=== PATIENT | male | born 1975 | race African-American/Black ===

== ENCOUNTER 2018-10-09 15:56 | Inpatient (IN) ==
[2018-10-09] MEDS ORDERED: 0.9 % Sodium Chloride 1,000 ML IVC ONE (16:25)
[2018-10-09] MEDS ORDERED: *HR* Morphine Immed Rel 30 MG TABLET PO STA (16:25)
[2018-10-09] MEDS ORDERED: Isovue-370 500 ML BOTTLE IVP ONE (16:25)
--- NOTE | 2018-10-09 16:42 | Emergency Department Note ---
Disposition Clinical Impression: Cellulitis, gluteal Disposition: Admitted As Inpatient Condition: Good Referrals: Nanci Martinez CNP [Primary Care Provider] - Forms: ED Satisfaction Letter Time of Disposition: 19:37 Skin/Abscess/FB HPI Chief complaint: ED Skin/Abscess/Foreign Body Stated complaint: Abcess on back Time Seen by Provider: 10/09/18 16:13 Source: patient Mode of arrival: ambulatory Limitations: no limitations Nursing Notes Reviewed: Yes Vital Signs Reviewed: Yes HPI Narrative: 43-year-old male with no previous medical history and previous history of ab scess arrives to the emergency department with abscess in his left buttock is radiating anteriorly noted to his perineum. The patient states this started roughly 4 days ago. The patient was evaluated urgent care was started on antibiotics but does not know which one. Patient states that since then he has been express worsening pain. The patient arrives to the emergency department complaining of large amount of pain in his perineal and buttock region. Denies any other complaints at this time going fevers, chills.. No ulcerative colitis history or history of Crohn's disease. Denies any other previous abdominal surgeries or complaints. Patient is uncomfortable on evaluation in the room but denies any other complaints at this time. Home Medications Medication Instructions Recorded Confirmed Lisinopril [Zestril] 20 mg PO DAILY 10/03/17 10/09/18 Omeprazole [PriLOSEC] 20 mg PO DAILY 10/03/17 10/09/18 Cyclobenzaprine [Flexeril] 10 mg PO HS PRN 04/03/18 10/09/18 Atorvastatin [Lipitor] 20 mg PO HS 10/09/18 10/09/18 Celecoxib [Celebrex] 200 mg PO BID 10/09/18 10/09/18 Lactobacillus Acidophilus 1 each PO DAILY 10/09/18 10/09/18 [Acidophilus] Sulfamethoxazole/Trimeth DS 1 tab PO BID 10/09/18 10/09/18 [Bactrim Ds] Tobramycin Opth SOLN 1 drop .ROUTE BID 10/09/18 10/09/18 cephALEXin [Keflex] 500 mg PO TID 10/09/18 10/09/18 Allergies Allergy/AdvReac Type Severity Reaction Status Date / Time No Known Allergies Allergy Verified 04/03/18 08:46 All systems ED: reviewed and negative except as stated. Constitutional: Denies: fever, chills, weakness ENT ED: Denies: dysphagia Cardiovascular: Denies: chest pain Respiratory: Denies: dyspnea Gastrointestinal: Denies: abdominal pain Genitourinary: Denies: urgency, dysuria Musculoskeletal: Denies: back pain, neck pain Integumentary: Reports: lesions Neurological: Denies: headache Past Medical History - Past Medical History Attestation: Yes The following information was validated with the patient. Source: patient, old records reviewed Medical history: Reports: hyperlipidemia, hypertension, other Surgical history: Reports: herniorrhaphy Psychiatric history: Reports: anxiety - Social History Smoking Status: Never smoker Smokeless Tobacco Status: No Alcohol use: Reports: none Drug use: Reports: none Physical Exam - General Limitations: no limitations General appearance: alert, in no apparent distress - Head Head exam: atraumatic, normocephalic, normal inspection - Eye Eye exam: Present: normal appearance, PERRL, EOMI - ENT ENT exam: normal exam, normal oropharynx, mucous membranes moist - Neck Neck exam: Present: normal inspection, full ROM, trachea midline - Chest Chest inspection: Present: normal inspection, symmetric chest wall rise - Respiratory Respiratory exam: Absent: respiratory distress - Cardiovascular Cardiovascular exam: Present: tachycardia - Abdominal Exam Abdominal exam: Present: soft, Non-Tender. Absent: tenderness, distention, guarding, rebound, rigidity - Rectal Exam [employer] Agent present during exam: Yes Rectal exam: Present: other (Patient with a 6 cm area of induration on left gluteal cleft with induration radiating anteriorly into perineal region. ) Course Vital Signs Temperature 98.1 F 10/09/18 15:58 Pulse Rate 119 10/09/18 15:58 Respiratory Rate 20 10/09/18 15:58 Blood Pressure 133/86 10/09/18 15:58 O2 Sat by Pulse Oximetry 98 10/09/18 15:58 Temperature 98.1 F 10/09/18 15:58 Pulse Rate 98 10/09/18 18:18 Respiratory Rate 20 10/09/18 15:58 Blood Pressure 134/76 10/09/18 18:18 O2 Sat by Pulse Oximetry 98 10/09/18 18:18 Oxygen Delivery Oxygen Delivery Room Air Skin/Abscess/Foreign Body - MDM Narrative Medical decision making narrative: Patient CT scan demonstrates continued cellulitis but there is no drainable abscess. Given the patient's large amount of pain and the fact that the patient has been taking antibiotics and his symptoms worsen, we will admit the patient to the hospital for failed outpatient therapy. Patient aware and agrees to plan . No further questions or concerns noted. Accepted by Dr. Cullen. - Lab Data Lab results reviewed: Yes I reviewed the patient's lab results. Result diagrams: 10/09/18 18:20 10/09/18 16:45 Lab Results 10/09/18 10/09/18 10/09/18 Range/Units 16:45 18:20 18:20 WBC 18.6 H (4.3-11.1) K/mcL RBC 5.02 (4.19-5.50) M/mcL Hgb 14.5 (12.9-16.9) g/dL Hct 40.4 (37.5-50.1) % MCV 80.5 L (83.0-100.0) fL MCH 28.9 (28.0-33.3) pg MCHC 35.9 H (31.6-35.5) g/dL RDW 12.4 (11.5-14.5) % Plt Count 216 (140-400) K/mcL MPV 11.7 (9.4-12.4) fL Immature Gran % 0.5 (0-4) % Seg Neutrophils % 75.4 % Lymphocytes % 15.4 % Monocytes % 7.7 % Eosinophils % 0.5 % Basophils % 0.5 % Neutrophils # 14.0 H (1.6-8.9) K/mcL Lymphocytes # 2.9 (0.6-4.6) K/mcL Monocytes # 1.4 H (0.0-1.3) K/mcL Eosinophils # 0.1 (0.0-0.6) K/mcL Basophils # 0.1 (0.0-0.2) K/mcL Sodium 137 (136-145) mEq/L Potassium 4.1 (3.5-5.1) mEq/L Chloride 98 (98-107) mEq/L Carbon Dioxide 24 (23-29) mEq/L BUN 17 (6-20) mg/dL Creatinine 1.27 (0.70-1.30) mg/dL Est GFR ( Amer) > 60 (> 60) Est GFR (Non-Af Amer) > 60 (> 60) BUN/Creatinine Ratio 13 (6-26) Glucose 121 H (70-105) mg/dL Calculated Osmolality 287 (280-300) Lactic Acid 0.6 (0.5-2.2) mmol/L Calcium 9.1 (8.6-10.3) mg/dL - Radiology Data Radiology results reviewed: Yes I reviewed the patient's radiology results. Abdomen/Pelvis CT 10/09/18 16:25 IMPRESSION: Probable cellulitis or phlegmon in the left buttocks without evidence for drainable abscess D/ / Tank Morales MD / Tank Morales MD Interpreting Provider: Tank Morales MD
[2018-10-09 17:21] LABS: BUN/Creatinine Ratio 13 (6-26); Blood Urea Nitrogen 17 mg/dL (6-20); Calcium 9.1 mg/dL (8.6-10.3); Carbon Dioxide 24 mEq/L (23-29); Chloride 98 mEq/L (98-107); Glucose 121 mg/dL (70-105); Osmolality,Calculated 287 (280-300); Potassium 4.1 mEq/L (3.5-5.1); Sodium 137 mEq/L (136-145); eGFR For Non-African Americans > 60 (> 60)
[2018-10-09] MEDS ORDERED: Piperacillin/Tazobactam 3.375 GM in 0.9 % Sodium Chloride Mini Bag 100 ML IVPB ONE (18:11)
[2018-10-09] MEDS ORDERED: *HR* FentaNYL (PF) 100 MCG/2 ML VIAL IVP ONE (18:20)
--- NOTE | 2018-10-09 18:22 | Emergency Department Note ---
Disposition Clinical Impression: Cellulitis, gluteal Disposition: Admitted As Inpatient Condition: Good Referrals: Nanci Martinez CNP [Primary Care Provider] - Forms: ED Satisfaction Letter Time of Disposition: 18:22 General Adult HPI - General Chief complaint: ED Skin/Abscess/Foreign Body Stated complaint: Abcess on back Time Seen by Provider: 10/09/18 16:13 Source: patient Mode of arrival: ambulatory Limitations: no limitations - History of Present Illness Pain Scale: 10 - Related Data Home Medications Medication Instructions Recorded Confirmed Amlodipine Besylate 2.5 mg PO DAILY 10/03/17 04/03/18 Lisinopril [Zestril] 20 mg PO DAILY 10/03/17 04/03/18 Omeprazole [PriLOSEC] 20 mg PO DAILY 10/03/17 04/03/18 Cyclobenzaprine [Flexeril] 10 mg PO HS PRN 04/03/18 04/03/18 Previous Rx's Medication Instructions Recorded Crutch 1 each MC DAILY #1 each 04/03/18 Ketorolac [Toradol] 10 mg PO Q6HR PRN #20 tablet 04/03/18 cephALEXin [Keflex] 500 mg PO QID 10 Days #40 capsule 04/08/18 Allergies Allergy/AdvReac Type Severity Reaction Status Date / Time No Known Allergies Allergy Verified 04/03/18 08:46 Constitutional: Denies: fever, chills, weakness ENT ED: Denies: dysphagia Cardiovascular: Denies: chest pain Respiratory: Denies: dyspnea Gastrointestinal: Denies: abdominal pain Genitourinary: Denies: urgency, dysuria Musculoskeletal: Denies: back pain, neck pain Integumentary: Reports: lesions Neurological: Denies: headache Past Medical History - Past Medical History Medical history: Reports: hyperlipidemia, hypertension, other Surgical history: Reports: herniorrhaphy Psychiatric history: Reports: anxiety - Social History Smoking Status: Never smoker Smokeless Tobacco Status: No Alcohol use: Reports: none Drug use: Reports: none Physical Exam - General Limitations: no limitations General appearance: alert, in no apparent distress Course Vital Signs Temperature 98.1 F 10/09/18 15:58 Pulse Rate 119 10/09/18 15:58 Respiratory Rate 20 10/09/18 15:58 Blood Pressure 133/86 10/09/18 15:58 O2 Sat by Pulse Oximetry 98 10/09/18 15:58 Temperature 98.1 F 10/09/18 15:58 Pulse Rate 98 10/09/18 18:18 Respiratory Rate 20 10/09/18 15:58 Blood Pressure 134/76 10/09/18 18:18 O2 Sat by Pulse Oximetry 98 10/09/18 18:18 Oxygen Delivery Oxygen Delivery Room Air Medical Decision Making - Lab Data Result diagrams: 10/09/18 16:45 Lab Results 10/09/18 Range/Units 16:45 Sodium 137 (136-145) mEq/L Potassium 4.1 (3.5-5.1) mEq/L Chloride 98 (98-107) mEq/L Carbon Dioxide 24 (23-29) mEq/L BUN 17 (6-20) mg/dL Creatinine 1.27 (0.70-1.30) mg/dL Est GFR ( Amer) > 60 (> 60) Est GFR (Non-Af Amer) > 60 (> 60) BUN/Creatinine Ratio 13 (6-26) Glucose 121 H (70-105) mg/dL Calculated Osmolality 287 (280-300) Calcium 9.1 (8.6-10.3) mg/dL Attestation Statement - Attestation Attestation: I examined this patient and my medical decision-making was reviewed with the Resident Physician. I agree with the documented findings, disposition and treatment plan as described except to the extent set forth below. 43 year old male presents to the ED with complaits of gluteal cleft infection, no history of MRSA, no history of diabetes and states that he has been on outpatinet therapy for this cellultiis and it isnt improving. ABCT show no drainable absess, but rather a phlegmon that is present. we will plce him on vanc/zosyn and admit to medicine.
[2018-10-09 19:01] LABS: Basophils # 0.1 K/mcL (0.0-0.2); Basophils % 0.5 %; Eosinophils # 0.1 K/mcL (0.0-0.6); Eosinophils % 0.5 %; Hematocrit 40.4 % (37.5-50.1); Hemoglobin 14.5 g/dL (12.9-16.9); Immature Granulocytes % 0.5 % (0-4); Lymphocytes # 2.9 K/mcL (0.6-4.6); Lymphocytes % 15.4 %; Mean Corpuscular HGB Conc 35.9 g/dL (31.6-35.5); Mean Corpuscular Hemoglobin 28.9 pg (28.0-33.3); Mean Corpuscular Volume 80.5 fL (83.0-100.0); Mean Platelet Volume 11.7 fL (9.4-12.4); Monocytes # 1.4 K/mcL (0.0-1.3); Monocytes % 7.7 %; Platelet Count 216 K/mcL (140-400); Red Blood Count 5.02 M/mcL (4.19-5.50); Red Cell Distribution Width 12.4 % (11.5-14.5); Segmented Neutrophils % 75.4 %
[2018-10-09] MEDS ORDERED: Naloxone 0.4 MG/ML INJ IVP PRN (19:51)
[2018-10-09] MEDS ORDERED: Acetaminophen 325 MG TABLET PO PRN (19:51)
[2018-10-09] MEDS ORDERED: Ketorolac 30 MG/ML VIAL IVP ONE (21:00)
--- NOTE | 2018-10-09 21:13 | Internal Med History&Physical ---
Date of Encounter: 10/09/18 Time of Encounter: 21:07 Internal Medicine - H&P: HPI Chief complaint: Butt pain Admitted From: Emergency Dept Plans for Post Hospital Care: Home History of present illness: Berhane Ballesteros is a 43 year old man with hypertension who presents to the emergency room complaining of pain and swelling in his buttocks. It started 4 days ago and he started taking cephalexin 2 days ago with no improvement. He says it continued to progress and on arrival was noted tachycardic. Lab work revealed a leukocyte count of 18.6. Physical exam confirmed significant inflammatory signs on the left gluteal cleft and extending. CT scan showed cellulitis and phlegmon formation in the left buttock without evidence of drainable abscess. He was given vancomycin and PipTazo and is now admitted for further care. Past Med Surg Social Fam HX - Past Medical History Medical history: hyperlipidemia, hypertension, other Additional medical history: Sleep apnea. chronic back pain Psychiatric history: anxiety - Past Surgical History Surgical History: herniorrhaphy Additional surgical history: right inguinal hernia repair - Social History Smoking Status: Never smoker Smokeless Tobacco Status: No Alcohol use: none Drug use: none Internal Medicine - H&P: Meds Lisinopril [Zestril] 20 mg PO DAILY 10/03/17 [History] Omeprazole [PriLOSEC] 20 mg PO DAILY 10/03/17 [History] Cyclobenzaprine [Flexeril] 10 mg PO HS PRN 04/03/18 [History] Atorvastatin [Lipitor] 20 mg PO HS 10/09/18 [History] Celecoxib [Celebrex] 200 mg PO BID 10/09/18 [History] Lactobacillus Acidophilus [Acidophilus] 1 each PO DAILY 10/09/18 [History] Sulfamethoxazole/Trimeth DS [Bactrim Ds] 1 tab PO BID 10/09/18 [History] Tobramycin Opth SOLN 1 drop .ROUTE BID 10/09/18 [History] cephALEXin [Keflex] 500 mg PO TID 10/09/18 [History] Allergy/AdvReac Type Severity Reaction Status Date / Time No Known Allergies Allergy Verified 04/03/18 08:46 All Systems PM: A 10-system review of systems was performed and is negative for pertinent findings except as documented above in the HPI. Family history reviewed and found non-contributory. - Constitutional Vitals: Temp Pulse Resp BP Pulse Ox 98.1 F 98 20 134/76 98 10/09/18 15:58 10/09/18 18:18 10/09/18 15:58 10/09/18 18:18 10/09/18 18:18 Exam: Vitals: Reviewed General: Well-developed -[place]ian male lying in bed with notable discomfort and antalgic posturing Skin: Left gluteal cleft with firm induration of about 5cm area, hot to touch and exquisitely tender. HEENT: Moist mucous membranes. No conjunctivae pallor. Neck: No lymphadenopathy. No JVD. No carotid bruits. No palpable thyroid. Chest: Normal thoracic expansion. Normal breath sounds. Clear to auscultation. Heart: Normal S1 & S2; rhythmic. No rubs or murmurs. Abdomen: Non-distended, soft and non-tender to palpation. No peritoneal reaction. Extremities: No clubbing, cyanosis or edema. No calf tenderness. Normal distal pulses. Neurological: Awake, alert and oriented to person, place and time. No focal deficits. Psych: Affect appropriate. Internal Med - H&P Results - Labs CBC & Chem 7: 10/09/18 18:20 10/09/18 16:45 Labs: Short CBC 10/09/18 Range/Units 18:20 WBC 18.6 H (4.3-11.1) K/mcL Hgb 14.5 (12.9-16.9) g/dL Hct 40.4 (37.5-50.1) % Plt Count 216 (140-400) K/mcL Neutrophils # 14.0 H (1.6-8.9) K/mcL BMP 10/09/18 16:45 Sodium 137 Potassium 4.1 Chloride 98 Carbon Dioxide 24 BUN 17 Creatinine 1.27 Glucose 121 H Calcium 9.1 - Impressions ITS Impressions Abdomen/Pelvis CT 10/09/18 16:25 IMPRESSION: Probable cellulitis or phlegmon in the left buttocks without evidence for drainable abscess D/ / Tank Morales MD / Tank Morales MD Interpreting Provider: Tank Morales MD - Assessment and plan (1) Cellulitis, gluteal Current Visit: Yes Status: Acute Assessment and plan: Poor response to outpatient therapy and now has signs of sepsis as evidenced by tachycardia and leukocytosis. Will continue fluid resuscitation and place on vancomycin. He will need close clinical monitoring to assess for coalescence of the underlying collection which may then be amenable to incision/drainage. Pain control as needed. (2) HTN (hypertension) Current Visit: Yes Status: Acute Assessment and plan: Will continue daily lisinopril Qualifiers: Hypertension type: essential hypertension Qualified Code(s): I10 - Essential (primary) hypertension (3) Obesity Current Visit: Yes Status: Acute Assessment and plan: Educated in counseling given on therapeutic lifestyle changes for weight loss. Qualifiers: Obesity type: due to excess calories Obesity classification: adult class 2 (BMI 35 - 39.9) Serious obesity comorbidity presence: with serious comorbidity Body mass index: BMI 37.0-37.9 Qualified Code(s): E66.01 - Morbid (severe) obesity due to excess calories; Z68.37 - Body mass index (BMI) 37.0-37.9, adult (4) DVT prophylaxis Current Visit: Yes Status: Acute Assessment and plan: SubQ heparin - Time Spent With Patient Total time spent is greater than 50% in coordination of care (as documented) at patient's floor/unit and/or counseling patient: Greater than 35 minutes
[2018-10-09] MEDS: *HR* OxyCODONE Immed Rel 5 MG TABLET PO PRN (22:35)
[2018-10-09] MEDS: Ringers Solution, Lactated 1,000 ML IVC SCH (22:35)
[2018-10-09] MEDS: Celecoxib 200 MG CAPSULE PO SCH (23:56)
[2018-10-10] MEDS: *HR* Heparin 5,000 UNIT/ML VIAL SQ SCH ×2 (05:34→16:37)
[2018-10-10] MEDS: Lisinopril 20 MG TABLET PO SCH (08:00)
[2018-10-10] MEDS: Celecoxib 200 MG CAPSULE PO SCH ×2 (08:00→20:45)
[2018-10-10] MEDS: *HR* OxyCODONE Immed Rel 5 MG TABLET PO PRN ×3 (08:01→22:26)
[2018-10-10] MEDS: Ringers Solution, Lactated 1,000 ML IVC SCH (08:01)
[2018-10-10] MEDS ORDERED: Lactobacillus 1 EACH CAP.SPRINK PO SCH (09:00)
[2018-10-10 10:08] LABS: Basophils # 0.1 K/mcL (0.0-0.2); Basophils % 0.6 %; Eosinophils # 0.4 K/mcL (0.0-0.6); Eosinophils % 3.5 %; Hematocrit 40.6 % (37.5-50.1); Hemoglobin 14.6 g/dL (12.9-16.9); Immature Granulocytes % 0.3 % (0-4); Lymphocytes # 2.3 K/mcL (0.6-4.6); Lymphocytes % 20.5 %; Mean Corpuscular Hemoglobin 29.1 pg (28.0-33.3); Mean Platelet Volume 11.2 fL (9.4-12.4); Monocytes % 8.6 %; Neutrophils # 7.6 K/mcL (1.6-8.9); Platelet Count 196 K/mcL (140-400); Red Blood Count 5.01 M/mcL (4.19-5.50); Red Cell Distribution Width 12.4 % (11.5-14.5); Segmented Neutrophils % 66.5 %
[2018-10-10 10:13] LABS: INR 1.2; Prothrombin Time 13.9 Seconds (9.4-12.1)
[2018-10-10 10:15] LABS: Activated Partial Thrombo Time 32.5 Seconds (26.0-36.0)
[2018-10-10 10:28] LABS: BUN/Creatinine Ratio 13 (6-26); Blood Urea Nitrogen 13 mg/dL (6-20); Calcium 9.2 mg/dL (8.6-10.3); Carbon Dioxide 28 mEq/L (23-29); Chloride 104 mEq/L (98-107); Glucose 114 mg/dL (70-105); Osmolality,Calculated 285 (280-300); Sodium 137 mEq/L (136-145); eGFR For Non-African Americans > 60 (> 60)
[2018-10-10] MEDS: traMADol 50 MG TABLET PO PRN ×2 (13:07→20:48)
--- NOTE | 2018-10-10 15:03 | Internal Med Progress Note ---
Hospitalist Progress Note - Encounter Date of Encounter: 10/10/18 Time of Encounter: 09:00 - Subjective Interval History: Patient has no fever, no nausea vomiting. Still complains of left sided buttock pain. Vitals are stable. - Exam Vitals: Temp Pulse Resp BP Pulse Ox 98.3 F 73 17 134/80 97 10/10/18 14:21 10/10/18 14:21 10/10/18 14:21 10/10/18 14:21 10/10/18 14:21 Exam: Vitals: Reviewed General: Well-developed -[place] male lying in bed with notable discomfort and anti-algic posturing Skin: Left gluteal cleft with firm induration of about 5cm area, hot to touch and exquisitely tender. HEENT: Moist mucous membranes. No conjunctivae pallor. Neck: No lymphadenopathy. No JVD. No carotid bruits. No palpable thyroid. Chest: Normal thoracic expansion. Normal breath sounds. Clear to auscultation. Heart: Normal S1 & S2; rhythmic. No rubs or murmurs. Abdomen: Non-distended, soft and non-tender to palpation. No peritoneal reaction. Extremities: No clubbing, cyanosis or edema. No calf tenderness. Normal distal pulses. Neurological: Awake, alert and oriented to person, place and time. No focal deficits. Psych: Affect appropriate. - Assessment and Plan (1) Cellulitis, gluteal Current Visit: Yes Status: Acute Assessment and Plan: Poor response to outpatient therapy and now has signs of sepsis as evidenced by tachycardia and leukocytosis. - Continue antibiotic vancomycin - CT shows no drainable fluid collection. - White count trended down. Tachycardia improved treatment (2) HTN (hypertension) Current Visit: Yes Status: Acute Assessment and Plan: Will continue daily lisinopril (3) Obesity Current Visit: Yes Status: Acute Assessment and Plan: Educated in counseling given on therapeutic lifestyle changes for weight loss. (4) DVT prophylaxis Current Visit: Yes Status: Acute Assessment and Plan: SubQ heparin - Time Spent with Patient Total time spent is greater than 50% in coordination of care (as documented) at patient's floor/unit and/or counseling patient: 40 minutes Greater than 35 minutes Plan of Care Discussed with: patient Internal Medicine: Result - Labs CBC & Chem 7: 10/10/18 04:00 10/10/18 04:00 Labs: Short CBC 10/09/18 10/10/18 Range/Units 18:20 04:00 WBC 18.6 H 11.4 H (4.3-11.1) K/mcL Hgb 14.5 14.6 (12.9-16.9) g/dL Hct 40.4 40.6 (37.5-50.1) % Plt Count 216 196 (140-400) K/mcL Neutrophils # 14.0 H 7.6 (1.6-8.9) K/mcL BMP 10/09/18 10/10/18 16:45 04:00 Sodium 137 137 Potassium 4.1 4.0 Chloride 98 104 Carbon Dioxide 24 28 BUN 17 13 Creatinine 1.27 1.01 Glucose 121 H 114 H Calcium 9.1 9.2 - ABG Interpretation ABG results: PT/INR, D-dimer PT 13.9 Seconds (9.4-12.1) H 10/10/18 04:00 - Impressions Impressions Abdomen/Pelvis CT 10/09/18 16:25 IMPRESSION: Probable cellulitis or phlegmon in the left buttocks without evidence for drainable abscess D/ / Tank Morales MD / Tank Morales MD Interpreting Provider: Tank Morales MD Consult Discharge Plan - Plan Referrals: Nanci Martinez, P[employer]ER [Primary Care Provider] - (2) HTN (hypertension) Qualifiers: Hypertension type: essential hypertension Qualified Code(s): I10 - Essential (primary) hypertension (3) Obesity Qualifiers: Obesity type: due to excess calories Obesity classification: adult class 2 (BMI 35 - 39.9) Serious obesity comorbidity presence: with serious comorbidity Body mass index: BMI 37.0-37.9 Qualified Code(s): E66.01 - Morbid (severe) obesity due to excess calories; Z68.37 - Body mass index (BMI) 37.0-37.9, adult
[2018-10-10] MEDS: traMADol 50 MG TABLET PO SCH ×2 (23:27→23:36)
[2018-10-11 04:06] LABS: Basophils # 0.1 K/mcL (0.0-0.2); Basophils % 0.6 %; Eosinophils # 0.6 K/mcL (0.0-0.6); Eosinophils % 6.2 %; Hematocrit 36.9 % (37.5-50.1); Hemoglobin 13.1 g/dL (12.9-16.9); Immature Granulocytes % 0.3 % (0-4); Lymphocytes # 2.3 K/mcL (0.6-4.6); Lymphocytes % 25.1 %; Mean Corpuscular HGB Conc 35.5 g/dL (31.6-35.5); Mean Corpuscular Hemoglobin 29.3 pg (28.0-33.3); Mean Corpuscular Volume 82.6 fL (83.0-100.0); Monocytes # 0.9 K/mcL (0.0-1.3); Monocytes % 9.5 %; Neutrophils # 5.3 K/mcL (1.6-8.9); Platelet Count 161 K/mcL (140-400); Red Blood Count 4.47 M/mcL (4.19-5.50); Red Cell Distribution Width 12.4 % (11.5-14.5); Segmented Neutrophils % 58.3 %
[2018-10-11 04:22] LABS: BUN/Creatinine Ratio 12 (6-26); Blood Urea Nitrogen 14 mg/dL (6-20); Calcium 8.8 mg/dL (8.6-10.3); Carbon Dioxide 25 mEq/L (23-29); Chloride 106 mEq/L (98-107); Glucose 111 mg/dL (70-105); Osmolality,Calculated 283 (280-300); Potassium 4.4 mEq/L (3.5-5.1); Sodium 136 mEq/L (136-145); eGFR For Non-African Americans > 60 (> 60)
[2018-10-11] MEDS: traMADol 50 MG TABLET PO SCH ×4 (04:33→19:56)
[2018-10-11] MEDS: *HR* OxyCODONE Immed Rel 5 MG TABLET PO PRN ×2 (06:06→19:54)
[2018-10-11] MEDS: *HR* Heparin 5,000 UNIT/ML VIAL SQ SCH ×2 (06:07→18:13)
[2018-10-11] MEDS: Lisinopril 20 MG TABLET PO SCH (08:08)
[2018-10-11] MEDS: Celecoxib 200 MG CAPSULE PO SCH ×2 (08:08→19:54)
--- NOTE | 2018-10-11 12:45 | Internal Med Progress Note ---
Hospitalist Progress Note - Encounter Date of Encounter: 10/11/18 Time of Encounter: 12:42 - Subjective Interval History: Pt's pain not improving. States it has started draining and that there was pus running down his leg and in his underwear. Very tender to the touch. Denies fever, N/V, diarrhea, CP, or SOB. - Exam Vitals: Temp Pulse Resp BP Pulse Ox 97.7 F 66 16 129/76 97 10/11/18 10:52 10/11/18 10:52 10/11/18 10:52 10/11/18 10:52 10/11/18 10:52 Exam: General: NAD, uncomfortable from pain Skin: Left gluteal cleft with firm induration of about 5cm area, warm, tender, with purulent drainage Chest: Normal breath sounds. Clear to auscultation. Heart: Normal S1 & S2; RRR Abdomen: soft and non-tender Extremities: No edema. Normal distal pulses. Neurological: No focal deficits. Psych: Awake, fully oriented, normal affect - Summary of Assessment and Plan Summary of Assessment and Plan: Berhane Ballesteros is a 43 M w hx obesity, HTN, HLD, GERARD, who p/w painful rash L gluteal crease and leukocytosis concerning for abscess and cellulitis. Cellulitis and abscess: CT suggesting against drainable collection but on exam today there is purulent expression. Leukocytosis resolved. - continue empiric Vanc - GenSurg consultation - wound culture - pain control w oxycodone Sepsis (poa): resolved, vitals and leukocytosis improved, lactate wnl and BCx ngtd HTN: home lisinopril HLD: home lipitor GERARD: CPAP qhs Obesity: BMI 37 Chronic back pain: home celebrex PPx: lovenox FEN: regular, no MIVF Lines: PIV Consults: Code: Full Dispo: patient requires inpatient eval and management at this time. Anticipate 2-3 days. Will be homegoing - Time Spent with Patient Total time spent is greater than 50% in coordination of care (as documented) at patient's floor/unit and/or counseling patient: Internal Medicine: Result - Labs CBC & Chem 7: 10/11/18 03:17 10/11/18 03:17 Labs: Short CBC 10/11/18 Range/Units 03:17 WBC 9.1 (4.3-11.1) K/mcL Hgb 13.1 D (12.9-16.9) g/dL Hct 36.9 L (37.5-50.1) % Plt Count 161 (140-400) K/mcL Neutrophils # 5.3 (1.6-8.9) K/mcL BMP 10/11/18 03:17 Sodium 136 Potassium 4.4 Chloride 106 Carbon Dioxide 25 BUN 14 Creatinine 1.20 Glucose 111 H Calcium 8.8 - ABG Interpretation ABG results: PT/INR, D-dimer PT 13.9 Seconds (9.4-12.1) H 10/10/18 04:00 Consult Discharge Plan - Plan Referrals: Nanci Martinez, [employer] DEM[employer]ATOR [Primary Care Provider] -
--- NOTE | 2018-10-11 16:01 | General Surgery Consult Note ---
Date of Encounter: 10/11/18 Time of Encounter: 16:00 History of Present Illness Consult date: 10/11/18 Reason for consult: other (left buttock abscess) Requesting physician: José Burleson History of present illness: 43-year-old referred for further surgical evaluation and possible treatment of progressive pain and swelling left buttocks. Symptoms started approximately 4 days before presenting to [facility] for further evaluation and treatment on 10/09/18. CT of the area demonstrated cellulitis and phlegmon without evidence of a "drainable" abscess. That has progressed to a 4 cm well-defined, tender abscess medial left buttocks. Unfortunately, this is not amenable to local anesthetic with incision and drainage at bedside. I have recommended incision, drainage, and debridement and on anesthesia. Past medical history: Hyperlipidemia, hypertension, obstructive sleep apnea, chronic back pain, and generalized anxiety Surgical history: Right inguinal hernia repair the remote past; no no other abdominal procedures. Allergies: No known drug allergies Medications: Lisinopril 20 mg by mouth daily Omeprazole 20 mg by mouth daily Cyclobenzaprine 10 mg by mouth daily at bedtime as needed (it is unclear whether the patient is still using this medication) Atorvastatin 20 mg by mouth daily at bedtime Celecoxib 200 mg by mouth twice a day Lactobacillus acidophilus 1 by mouth daily TMP/sulfa DS 1 by mouth twice a day, initiated 10/09/18 Cephalexin 500 mg by mouth 3 times a day, initiated 10/09/18 Vancomycin was initiated on admission to [facility] Social history: Patient denies alcohol, tobacco, or illicit drug use. He has never smoked Family history: Noncontributory Physical examination: Well-developed well-nourished, age-appropriate male in no acute distress. The patient is 1.88 m tall, 131.5 kg, BMI 37.2. The patient has remained afebrile, currently 98.0; pulse 66-68 and regular, respiratory rate 16, blood pressure 122/73. SPO2 on room air 97% Skin: Warm, without obvious jaundice. Multiple cutaneous tattoos are evident Lungs: Clear to auscultation, no abdominal pain on deep inspiration Cardiac: Regular rate, no appreciable murmurs Abdomen: Soft, nontender. No detected intra-abdominal masses. No rebound. Active bowel sounds. Buttocks: 4 cm, tender, round cutaneous abscess medial left buttocks. No obvious drainage. Surrounding skin changes, erythema or edema. Extremities: No obvious clubbing, cyanosis, or edema. Labs: WBC on presentation 18.6, currently 9.1. Neutrophils on presentation 14.0, currently 5.3. Hemoglobin 13.1, hematocrit 36.9, platelet count 161,000 Electrolytes, BUN, creatinine essentially stable and within normal limits for the last 2 days Impression: Cutaneous abscess, furuncle, medial left buttocks. Etiology not identified but the lesion requires incision, drainage, and debridement. To facilitate patient comfort and maximize debridement, the the abscess will be treated using anesthesia. The procedure was discussed with the patient. Risks include hemorrhage, infecti on, scarring with deformity, recurrent abscess. The patient is anxious to proceed as this will facilitate resolution of the acute inflammatory process and shorten his hospital stay. Surgical consent has been obtained. Past Med Surg Social Fam HX - Past Medical History Medical history: hyperlipidemia, hypertension, other Additional medical history: Sleep apnea. chronic back pain Psychiatric history: anxiety - Past Surgical History Surgical History: herniorrhaphy Additional surgical history: right inguinal hernia repair - Social History Smoking Status: Never smoker Smokeless Tobacco Status: No Alcohol use: none Drug use: none Medications and Allergies Lisinopril [Zestril] 20 mg PO DAILY 10/03/17 [History] Omeprazole [PriLOSEC] 20 mg PO DAILY 10/03/17 [History] Cyclobenzaprine [Flexeril] 10 mg PO HS PRN 04/03/18 [History] Atorvastatin [Lipitor] 20 mg PO HS 10/09/18 [History] Celecoxib [Celebrex] 200 mg PO BID 10/09/18 [History] Lactobacillus Acidophilus [Acidophilus] 1 each PO DAILY 10/09/18 [History] Sulfamethoxazole/Trimeth DS [Bactrim Ds] 1 tab PO BID 10/09/18 [History] Tobramycin Opth SOLN 1 drop .ROUTE BID 10/09/18 [History] cephALEXin [Keflex] 500 mg PO TID 10/09/18 [History] Allergy/AdvReac Type Severity Reaction Status Date / Time No Known Allergies Allergy Verified 04/03/18 08:46 Review of Systems All systems PM: The remainder of the systems were reviewed and are negative General Surgery Exam Initial Vital Signs Temp Pulse Resp BP Pulse Ox 98.1 F 119 20 133/86 98 10/09/18 15:58 10/09/18 15:58 10/09/18 15:58 10/09/18 15:58 10/09/18 15:58 Exam Initial Vital Signs Temp Pulse Resp BP Pulse Ox 98.1 F 119 20 133/86 98 10/09/18 15:58 10/09/18 15:58 10/09/18 15:58 10/09/18 15:58 10/09/18 15:58 Results - Labs 10/11/18 03:17 10/11/18 03:17 Abnormal lab results Hct 36.9 % (37.5-50.1) L 10/11/18 03:17 MCV 82.6 fL (83.0-100.0) L 10/11/18 03:17 PT 13.9 Seconds (9.4-12.1) H 10/10/18 04:00 Glucose 111 mg/dL (70-105) H 10/11/18 03:17 Diabetes panel 10/11/18 Range/Units 03:17 Sodium 136 (136-145) mEq/L Potassium 4.4 (3.5-5.1) mEq/L Chloride 106 (98-107) mEq/L Carbon Dioxide 25 (23-29) mEq/L BUN 14 (6-20) mg/dL Creatinine 1.20 (0.70-1.30) mg/dL Glucose 111 H (70-105) mg/dL Calcium 8.8 (8.6-10.3) mg/dL Calcium panel 10/11/18 Range/Units 03:17 Calcium 8.8 (8.6-10.3) mg/dL Pituitary panel 10/11/18 Range/Units 03:17 Sodium 136 (136-145) mEq/L Potassium 4.4 (3.5-5.1) mEq/L Chloride 106 (98-107) mEq/L Carbon Dioxide 25 (23-29) mEq/L BUN 14 (6-20) mg/dL Creatinine 1.20 (0.70-1.30) mg/dL Glucose 111 H (70-105) mg/dL Calcium 8.8 (8.6-10.3) mg/dL Adrenal panel 10/11/18 Range/Units 03:17 Sodium 136 (136-145) mEq/L Potassium 4.4 (3.5-5.1) mEq/L Chloride 106 (98-107) mEq/L Carbon Dioxide 25 (23-29) mEq/L BUN 14 (6-20) mg/dL Creatinine 1.20 (0.70-1.30) mg/dL Glucose 111 H (70-105) mg/dL Calcium 8.8 (8.6-10.3) mg/dL All other labs normal. Consult Discharge Plan - Plan Referrals: Nanci Martinez, RHIANNA [Primary Care Provider] -
[2018-10-11] MEDS ORDERED: *HR* Propofol 200 MG/20 ML VIAL IVP ONE (16:54)
[2018-10-11] MEDS ORDERED: *HR* Midazolam HCl 2 MG/2 ML VIAL ONE (16:54)
[2018-10-11] MEDS ORDERED: *HR* FentaNYL (PF) 100 MCG/2 ML VIAL ONE (16:54)
[2018-10-11] MEDS ORDERED: *HR* Succinylcholine 200 MG/10 ML VIAL IVP ONE (16:54)
[2018-10-11] MEDS ORDERED: Lidocaine -MPF 2% 2 ML VIAL ONE (16:54)
[2018-10-11] MEDS ORDERED: Dexamethasone 4 MG/ML VIAL ONE (16:57)
[2018-10-11] MEDS ORDERED: Ondansetron 4 MG/2 ML VIAL ONE (16:57)
--- NOTE | 2018-10-11 16:59 | Anesthesia Evaluation PreOp ---
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 History: Other (anxiety) Other Medical History: GERD Anesthesia History: No Prior Anesthetic Complications, Past Anesthesia (hernia repair) Alcohol Use: none Drug use: none Medications and Allergies Lisinopril [Zestril] 20 mg PO DAILY 10/03/17 [History] Omeprazole [PriLOSEC] 20 mg PO DAILY 10/03/17 [History] Cyclobenzaprine [Flexeril] 10 mg PO HS PRN 04/03/18 [History] Atorvastatin [Lipitor] 20 mg PO HS 10/09/18 [History] Celecoxib [Celebrex] 200 mg PO BID 10/09/18 [History] Lactobacillus Acidophilus [Acidophilus] 1 each PO DAILY 10/09/18 [History] Sulfamethoxazole/Trimeth DS [Bactrim Ds] 1 tab PO BID 10/09/18 [History] Tobramycin Opth SOLN 1 drop .ROUTE BID 10/09/18 [History] cephALEXin [Keflex] 500 mg PO TID 10/09/18 [History] Allergy/AdvReac Type Severity Reaction Status Date / Time No Known Allergies Allergy Verified 04/03/18 08:46 - Meds/Allergy Pre-op Review Medications Reviewed: Yes Allergies Reviewed: Yes Beta Blockers on Current Med List: No Anesthesia Results - Labs 10/11/18 03:17 10/11/18 03:17 Anesthesia Exam Vital Signs/O2 Sat, Most Current Temp Pulse Resp BP Pulse Ox 98 F 68 16 122/73 97 10/11/18 14:41 10/11/18 14:41 10/11/18 14:41 10/11/18 14:41 10/11/18 14:41 Weight: 131kg NPO (# of Hours): >8 - HEENT Pupil (Motor): Pupils equal, EOMI Mallampati: III Teeth: Normal Oral Opening: Greater than 3 - INTERNATIONAL GUEST COORDINATOR LOC: Oriented INTERNATIONAL GUEST COORDINATOR Motor: Normal RUE, Normal LUE, Normal RLE, Normal LLE, Normal Face INTERNATIONAL GUEST COORDINATOR Sensory: Normal: RUE, LUE, RLE, LLE, Face - Cardiac Rhythm: Regular - Pulmonary Breath Sounds: bilateral Clear Respiratory Effort: Symmetrical Anesthesia Assess/Plan ASA Score: 3 Level of consciousness: Cooperative Anesthetic Plan: General Monitoring Plan: Standard Monitors Recovery Plan: PACU
[2018-10-11] MEDS ORDERED: Ketorolac 30 MG/ML VIAL IVP ONE (17:00)
[2018-10-11] MEDS ORDERED: Ringers Solution, Lactated 1,000 ML IVC SCH ×2 (17:00→18:27)
[2018-10-11] MEDS ORDERED: *HR* OxyCODONE Immed Rel 5 MG TABLET PO PRN ×2 (17:00→17:48)
[2018-10-11] MEDS ORDERED: *HR* HYDROmorphone (PF) 1 MG/ML SYRINGE IVP PRN (17:00)
[2018-10-11] MEDS ORDERED: *HR* Meperidine 25 MG/ML SYRINGE IVP PRN (17:00)
--- NOTE | 2018-10-11 17:46 | Operative Note ---
Date of procedure: 10/11/18 Pre-op diagnosis: Cutaneous abscess medial left buttocks Post-op diagnosis: same Procedure: Incision, drainage, and debridement abscess medial left buttock Complications: None apparent Anesthesia: GETA Surgeon: Luisito Arauz Was there an rn first assistant present: No Estimated blood loss (cc): 10 IV fluids (cc): 200 Specimen: aerobic and anaerobic cultures Condition: stable Disposition: PACU Procedure in Detail: Technique: Patient was brought to the operating room where he was placed supine on the procedure table. The patient was identified as to appropriate person, laterality, and procedure. The accuracy of this information was confirmed by the patient and procedure team. The patient was then intubated and anesthetized under the supervision of Dr. Annabella Gonzales. On the airway was secured, the patient was positioned left lateral decubitus position. The buttocks were prepped and draped in usual sterile fashion. A 4 cm abscess was readily apparent medial left buttocks. It was approximately 4 cm from the anal verge. Rectal examination demonstrated no obvious extension to the anus or rectum. The skin was incised with a #10 scalpel. The incision was extended into the subcutaneous tissue, pus was encountered. Aerobic and anaerobic cultures were obtained. Internal loculations were bluntly debrided with a dissecting finger. The wound was then irrigated with the pulsatile irrigation system (Pulsavac plus) and 1 L sterile saline. The wound was packed with half-inch iodoform gauze. A fluffy gauze dressing was applied over the iodoform gauze packing. The patient was taken to recovery in stable condition. Needle, sponge, and instrument counts were correct at the close of the case.
[2018-10-11] MEDS ORDERED: Acetaminophen 325 MG TABLET PO PRN ×2 (17:48→19:19)
[2018-10-11] MEDS ORDERED: Naloxone 0.4 MG/ML INJ IVP PRN (18:27)
[2018-10-11] MEDS: Ondansetron 4 MG/2 ML VIAL IVP PRN (19:53)
[2018-10-11] MEDS ORDERED: Melatonin 3 MG TABLET PO ONE (23:25)
[2018-10-12] MEDS: *HR* OxyCODONE Immed Rel 5 MG TABLET PO PRN ×2 (02:02→09:01)
[2018-10-12 03:44] LABS: Basophils % 0.1 %; Hematocrit 38.2 % (37.5-50.1); Hemoglobin 13.6 g/dL (12.9-16.9); Immature Granulocytes % 0.3 % (0-4); Lymphocytes # 0.6 K/mcL (0.6-4.6); Lymphocytes % 6.4 %; Mean Corpuscular HGB Conc 35.6 g/dL (31.6-35.5); Mean Corpuscular Hemoglobin 28.9 pg (28.0-33.3); Mean Corpuscular Volume 81.1 fL (83.0-100.0); Mean Platelet Volume 11.4 fL (9.4-12.4); Monocytes # 0.2 K/mcL (0.0-1.3); Monocytes % 1.9 %; Neutrophils # 8.8 K/mcL (1.6-8.9); Platelet Count 237 K/mcL (140-400); Red Blood Count 4.71 M/mcL (4.19-5.50); Red Cell Distribution Width 12.1 % (11.5-14.5); Segmented Neutrophils % 91.3 %
[2018-10-12 04:01] LABS: BUN/Creatinine Ratio 17 (6-26); Blood Urea Nitrogen 16 mg/dL (6-20); Calcium 8.9 mg/dL (8.6-10.3); Carbon Dioxide 25 mEq/L (23-29); Chloride 104 mEq/L (98-107); Glucose 127 mg/dL (70-105); Osmolality,Calculated 285 (280-300); Potassium 4.9 mEq/L (3.5-5.1); Sodium 136 mEq/L (136-145); eGFR For Non-African Americans > 60 (> 60)
[2018-10-12] MEDS: Lisinopril 20 MG TABLET PO SCH (09:00)
[2018-10-12] MEDS: Celecoxib 200 MG CAPSULE PO SCH ×2 (09:01→22:13)
--- NOTE | 2018-10-12 11:03 | Internal Med Progress Note ---
Hospitalist Progress Note - Encounter Date of Encounter: 10/12/18 Time of Encounter: 11:01 - Subjective Interval History: Pt's pain different from yesterday, does have likely incisional pain from procedure which is uncomfortable but overall says his pain is better than when he came in. Has bandage over site of I&D and doesn't know if bleeding or purulen t. Denies fever, N/V, diarrhea, CP, or SOB. - Exam Vitals: Temp Pulse Resp BP Pulse Ox 98.3 F 92 16 158/83 95 10/12/18 10:16 10/12/18 10:16 10/12/18 10:16 10/12/18 10:16 10/12/18 10:16 Exam: General: NAD, appears more comfortable today Skin: Left gluteal cleft with bandage Chest: Normal breath sounds. Clear to auscultation. Heart: Normal S1 & S2; RRR Abdomen: soft and non-tender Extremities: No edema. Normal distal pulses. Neurological: No focal deficits. Psych: Awake, fully oriented, normal affect - Summary of Assessment and Plan Summary of Assessment and Plan: Berhane Ballesteros is a 43 M w hx obesity, HTN, HLD, GERARD, who p/w painful rash L gluteal crease and leukocytosis concerning for abscess and cellulitis. Cellulitis and abscess: s/p I&D 10/12 by Jose Arauz - appreciate Suzaynab comanagement - continue empiric Vanc - wound culture pending, await spec and sens - plan to de-escalate to PO abx per culture - pain control w percocet Sepsis: resolved HTN: home lisinopril HLD: home lipitor GERARD: CPAP qhs Obesity: BMI 37 Chronic back pain: home celebrex PPx: ambulation FEN: regular, no MIVF Lines: PIV Consults: Jose Code: Full Dispo: patient requires inpatient eval and management at this time. Anticipate 1-2 days. Will be homegoing - Time Spent with Patient Total time spent is greater than 50% in coordination of care (as documented) at patient's floor/unit and/or counseling patient: Internal Medicine: Result - Labs CBC & Chem 7: 10/12/18 03:00 10/12/18 03:00 Labs: Short CBC 10/12/18 Range/Units 03:00 WBC 9.6 (4.3-11.1) K/mcL Hgb 13.6 (12.9-16.9) g/dL Hct 38.2 (37.5-50.1) % Plt Count 237 (140-400) K/mcL Neutrophils # 8.8 (1.6-8.9) K/mcL BMP 10/12/18 03:00 Sodium 136 Potassium 4.9 Chloride 104 Carbon Dioxide 25 BUN 16 Creatinine 0.94 Glucose 127 H Calcium 8.9 - ABG Interpretation ABG results: PT/INR, D-dimer PT 13.9 Seconds (9.4-12.1) H 10/10/18 04:00 Consult Discharge Plan - Plan Referrals: Luisito Arauz MD [Non-Partnered Physician] - Nanci Martinez CNP [Primary Care Provider] -
[2018-10-12] MEDS: *HR* OxyCODONE/APAP 5/325 TABLET PO PRN ×3 (13:58→22:13)
--- NOTE | 2018-10-12 14:06 | General Surgery Progress Note ---
Date of Encounter: 10/12/18 Time of Encounter: 13:30 Subjective Narrative: General Surgery - POD #1 Patient voicing no complaints; feeling better with diminished buttock pain. The abscess left buttocks appears to be clean and dry. Packing removed. No additional purulence encountered. The patient continues to be afebrile, currently 98.3, pulse 73-92, respirations 16-17, blood pressure 158/83. Operative cultures pending Laboratories: WBC 9.6, hemoglobin 13.6, hematocrit 38.2. Differential within normal limits. Electrolytes, BUN, creatinine remained within normal limits. Impression: Abscess left buttocks; postoperative day #1 status post incision and drainage. Patient doing well. Awaiting operative cultures to direct antibody therapy. Continue current antibiotic therapy pending those operative cultures results. Objective Vital Signs - Last 8 Hours Temp Pulse Resp BP Pulse Ox 10/12/18 10:16 98.3 F 92 16 158/83 95 Intake and Output 10/11/18 10/12/18 10/12/18 23:59 07:59 15:59 Intake Total 1300 / 1300 240 / 240 Output Total 10 0 / 0 Balance -10 / -10 1300 / 1300 240 / 240 Intake: IV Fluids 500 / 500 Vancocin 1,750 MG In 0.9 % 500 / 500 Sodium Chloride 500 ML @ 333.3 mls/hr IVPB Q12H [facility] Rx#: [id number] Oral 800 / 800 240 / 240 Output: Urine 0 / 0 0 / 0 Estimated Blood Loss Other: Meal Breakfast Percent of Meal Consumed 100% # Voids 1 # Bowel Movements 0 0 - Labs 10/12/18 03:00 10/12/18 03:00 Diabetes panel 10/12/18 Range/Units 03:00 Sodium 136 (136-145) mEq/L Potassium 4.9 (3.5-5.1) mEq/L Chloride 104 (98-107) mEq/L Carbon Dioxide 25 (23-29) mEq/L BUN 16 (6-20) mg/dL Creatinine 0.94 (0.70-1.30) mg/dL Glucose 127 H (70-105) mg/dL Calcium 8.9 (8.6-10.3) mg/dL Calcium panel 10/12/18 Range/Units 03:00 Calcium 8.9 (8.6-10.3) mg/dL Pituitary panel 10/12/18 Range/Units 03:00 Sodium 136 (136-145) mEq/L Potassium 4.9 (3.5-5.1) mEq/L Chloride 104 (98-107) mEq/L Carbon Dioxide 25 (23-29) mEq/L BUN 16 (6-20) mg/dL Creatinine 0.94 (0.70-1.30) mg/dL Glucose 127 H (70-105) mg/dL Calcium 8.9 (8.6-10.3) mg/dL Adrenal panel 10/12/18 Range/Units 03:00 Sodium 136 (136-145) mEq/L Potassium 4.9 (3.5-5.1) mEq/L Chloride 104 (98-107) mEq/L Carbon Dioxide 25 (23-29) mEq/L BUN 16 (6-20) mg/dL Creatinine 0.94 (0.70-1.30) mg/dL Glucose 127 H (70-105) mg/dL Calcium 8.9 (8.6-10.3) mg/dL Consult Discharge Plan - Plan Referrals: Luisito Arauz MD [Non-Partnered Physician] - Nanci Martinez CNP [Primary Care Provider] -
[2018-10-12] MEDS: traZODone 50 MG TABLET PO SCH (22:14)
[2018-10-13] MEDS: *HR* OxyCODONE/APAP 5/325 TABLET PO PRN ×4 (04:27→21:00)
[2018-10-13 05:29] LABS: BUN/Creatinine Ratio 13 (6-26); Blood Urea Nitrogen 14 mg/dL (6-20); Calcium 8.7 mg/dL (8.6-10.3); Carbon Dioxide 29 mEq/L (23-29); Chloride 104 mEq/L (98-107); Glucose 111 mg/dL (70-105); Osmolality,Calculated 287 (280-300); Potassium 3.9 mEq/L (3.5-5.1); Sodium 138 mEq/L (136-145); eGFR For Non-African Americans > 60 (> 60)
[2018-10-13] MEDS: Lisinopril 20 MG TABLET PO SCH (08:37)
[2018-10-13] MEDS: Celecoxib 200 MG CAPSULE PO SCH ×2 (08:37→21:00)
[2018-10-13] MEDS: Ondansetron 4 MG/2 ML VIAL IVP PRN (08:37)
--- NOTE | 2018-10-13 11:21 | Internal Med Progress Note ---
Hospitalist Progress Note - Encounter Date of Encounter: 10/13/18 Time of Encounter: 11:19 - Subjective Interval History: Pt feels overall improving, still incisional pain but able to walk and is glad for having had surgery. Slept well last night. Denies fever, N/V, diarrhea, CP, or SOB. Cultures growing MRSA. - Exam Vitals: Temp Pulse Resp BP Pulse Ox 97.5 F L 62 16 163/95 97 10/13/18 07:55 10/13/18 07:55 10/13/18 07:55 10/13/18 07:55 10/13/18 07:55 Exam: General: NAD, comfortable today Skin: Left gluteal cleft with bandage Chest: Normal breath sounds. Clear to auscultation. Heart: Normal S1 & S2; RRR Abdomen: soft and non-tender Extremities: No edema. Normal distal pulses. Neurological: No focal deficits. Psych: Awake, fully oriented, normal affect - Summary of Assessment and Plan Summary of Assessment and Plan: Berhane Ballesteros is a 43 M w hx obesity, HTN, HLD, GERARD, who p/w painful rash L gluteal crease and leukocytosis concerning for abscess and cellulitis. MRSA cellulitis and abscess: s/p I&D 10/[address] Arauz, WCx prelim MRSA, improving - appreciate GenSurg co-management - continue empiric Vanc - wound culture pending, prelim MRSA, await sens - plan to de-escalate to PO abx per culture - pain control w percocet, wean and space as able Sepsis: resolved HTN: home lisinopril HLD: home lipitor GERARD: CPAP qhs Obesity: BMI 37 Chronic back pain: home celebrex PPx: ambulation FEN: regular, no MIVF Lines: PIV Consults: GenSurg Code: Full Dispo: patient requires inpatient eval and management at this time. Anticipate d/c tomorrow when cultures result. Will be homegoing - Time Spent with Patient Total time spent is greater than 50% in coordination of care (as documented) at patient's floor/unit and/or counseling patient: Internal Medicine: Result - Labs CBC & Chem 7: 10/12/18 03:00 10/13/18 04:27 Labs: BMP 10/13/18 04:27 Sodium 138 Potassium 3.9 Chloride 104 Carbon Dioxide 29 BUN 14 Creatinine 1.04 Glucose 111 H Calcium 8.7 - ABG Interpretation ABG results: PT/INR, D-dimer PT 13.9 Seconds (9.4-12.1) H 10/10/18 04:00 Consult Discharge Plan - Plan Referrals: Luisito Arauz MD [Non-Partnered Physician] - Nanci Martinez CNP [Primary Care Provider] -
--- NOTE | 2018-10-13 12:30 | General Surgery Progress Note ---
Date of Encounter: 10/13/18 Time of Encounter: 12:28 Subjective Narrative: General Surgery - POD #2 Patient feeling well, experiencing mild to moderate incisional left buttock pain Afebrile, hemodynamically stable Operative cultures have yielded MRSA. Abscess site clean and dry. Recommendations: Patient may shower, wash incision/abscess cavity with soap and water Dry sterile gauze dressings as needed Anti-MRSA antibiotic therapy Outpatient surgical follow-up approximately 2 weeks post discharge Objective Vital Signs - Last 8 Hours Temp Pulse Resp BP Pulse Ox 10/13/18 11:36 97.8 F 66 18 132/77 96 10/13/18 07:55 97.5 F L 62 16 163/95 97 Intake and Output 10/12/18 10/13/18 10/13/18 23:59 07:59 15:59 Intake Total 120 / 120 1300 / 1300 Output Total 0 / 0 Balance 120 / 120 1300 / 1300 Intake: IV Fluids 500 / 500 Vancocin 1,750 MG In 0.9 % 500 / 500 Sodium Chloride 500 ML @ 333.3 mls/hr IVPB Q12H [facility] Rx#: [id number] Oral 120 / 120 800 / 800 Output: Urine 0 / 0 Other: Meal Dinner Percent of Meal Consumed 100% # Voids 1 # Bowel Movements 0 Weight 130.2 kg Patient Weight 10/13/18 23:59 Weight 130.2 kg - Labs 10/12/18 03:00 10/13/18 04:27 Diabetes panel 10/13/18 Range/Units 04:27 Sodium 138 (136-145) mEq/L Potassium 3.9 (3.5-5.1) mEq/L Chloride 104 (98-107) mEq/L Carbon Dioxide 29 (23-29) mEq/L BUN 14 (6-20) mg/dL Creatinine 1.04 (0.70-1.30) mg/dL Glucose 111 H (70-105) mg/dL Calcium 8.7 (8.6-10.3) mg/dL Calcium panel 10/13/18 Range/Units 04:27 Calcium 8.7 (8.6-10.3) mg/dL Pituitary panel 10/13/18 Range/Units 04:27 Sodium 138 (136-145) mEq/L Potassium 3.9 (3.5-5.1) mEq/L Chloride 104 (98-107) mEq/L Carbon Dioxide 29 (23-29) mEq/L BUN 14 (6-20) mg/dL Creatinine 1.04 (0.70-1.30) mg/dL Glucose 111 H (70-105) mg/dL Calcium 8.7 (8.6-10.3) mg/dL Adrenal panel 10/13/18 Range/Units 04:27 Sodium 138 (136-145) mEq/L Potassium 3.9 (3.5-5.1) mEq/L Chloride 104 (98-107) mEq/L Carbon Dioxide 29 (23-29) mEq/L BUN 14 (6-20) mg/dL Creatinine 1.04 (0.70-1.30) mg/dL Glucose 111 H (70-105) mg/dL Calcium 8.7 (8.6-10.3) mg/dL Consult Discharge Plan - Plan Referrals: Luisito Arauz MD [Non-Partnered Physician] - Nanci Martinez CNP [Primary Care Provider] -
[2018-10-13] MEDS: traZODone 50 MG TABLET PO SCH (21:00)
[2018-10-14] MEDS: *HR* OxyCODONE/APAP 5/325 TABLET PO PRN ×2 (01:39→06:31)
[2018-10-14 03:55] LABS: Hematocrit 35.7 % (37.5-50.1); Hemoglobin 12.8 g/dL (12.9-16.9); Mean Corpuscular HGB Conc 35.9 g/dL (31.6-35.5); Platelet Count 199 K/mcL (140-400); Red Blood Count 4.41 M/mcL (4.19-5.50); Red Cell Distribution Width 12.2 % (11.5-14.5)
[2018-10-14 04:10] LABS: BUN/Creatinine Ratio 13 (6-26); Blood Urea Nitrogen 14 mg/dL (6-20); Calcium 8.7 mg/dL (8.6-10.3); Carbon Dioxide 32 mEq/L (23-29); Chloride 103 mEq/L (98-107); Glucose 109 mg/dL (70-105); Osmolality,Calculated 285 (280-300); Potassium 4.2 mEq/L (3.5-5.1); Sodium 137 mEq/L (136-145); eGFR For Non-African Americans > 60 (> 60)
[2018-10-14 06:30] VITALS: BP 129/75
[2018-10-14] MEDS ORDERED: Sulfamethoxazole/Trimeth DS 1 EACH TABLET PO SCH (09:00)
--- NOTE | 2018-10-14 09:00 | Discharge Summary ---
- NOTES TO OUTPATIENT PROVIDER Notes to Outpatient Provider: MRSA abscess L buttocks, placed on Bactrim, needs follow up with Jose 1-2 weeks Date of Encounter: 10/14/18 Time of Encounter: 08:57 - Discharge Diagnosis (1) MRSA cellulitis Priority: Primary Status: Acute (2) Cellulitis and abscess of buttock Priority: Primary Status: Acute Hospital course: Dear Doctors, I recently had the opportunity to care for this patient during their recent hospital stay at [facility]. Berhane Ballesteros is a 43 M w hx obesity, HTN, HLD, GERARD, who presented at time of admission with pain on his left buttocks. Pt states he noticed what seemed like a pimple, but which rapidly grew over a few days into something much larger and was so painful he couldn't walk. He presented to the ED, where he was noted to have cellulitis, and with vitals and leukocytosis he met sepsis criteria. CT obtained in ED showed large area of induration but fluid collections, and pt was admitted and placed on Vancomycin IV for the cellulitis. After two days, however, the area began to spontaneously drain pus and General Surgery was consulted for I&D. Wound cultures grew MRSA, and patient was de-escalated to Bactrim and will complete a 10 day course of abx following I&D. Follow up: - Jose Arauz 2 weeks - PCP 1 month Tests pending: none Med changes: - new Bactrim DS 2 tabs BID, last dose 10/20 - new percocet 5, 1 tab q6h prn, #12 - holding lisinopril until finishes Bactrim Dx: MRSA abscess and cellulitis of L buttocks, sepsis Pertinent tests/consults: Jose Arauz took patient to OR on 10/11 for I&D Mental status: awake, fully oriented Code status: Picking Supervisor spent on discharge: 35 minutes It has been my pleasure participating in this patient's care. Please contact me with any questions or concerns regarding their hospital stay. Sincerely, José Burleson MD - Time Spent with Patient Total time spent providing and/or coordinating discharge services: - Discharge Medications Prescriptions: New OxyCODONE/APAP 5/325 [Percocet 5/325 MG] 1 each PO Q6H PRN 3 Days #12 tablet PRN Reason: Pain Sulfamethoxazole/Trimeth DS [Bactrim Ds] 2 each PO BID #28 tablet Continue Omeprazole [PriLOSEC] 20 mg PO DAILY Celecoxib [Celebrex] 200 mg PO BID Lactobacillus Acidophilus [Acidophilus] 1 each PO DAILY Atorvastatin [Lipitor] 20 mg PO HS Discontinued Lisinopril [Zestril] 20 mg PO DAILY Cyclobenzaprine [Flexeril] 10 mg PO HS PRN PRN Reason: Spasms cephALEXin [Keflex] 500 mg PO TID Tobramycin Opth SOLN 1 drop .ROUTE BID Sulfamethoxazole/Trimeth DS [Bactrim Ds] 1 tab PO BID Home Medications: Omeprazole [PriLOSEC] 20 mg PO DAILY 10/03/17 [History] Atorvastatin [Lipitor] 20 mg PO HS 10/09/18 [History] Celecoxib [Celebrex] 200 mg PO BID 10/09/18 [History] Lactobacillus Acidophilus [Acidophilus] 1 each PO DAILY 10/09/18 [History] OxyCODONE/APAP 5/325 [Percocet 5/325 MG] 1 each PO Q6H PRN 3 Days #12 tablet 10/14/18 [Rx] Sulfamethoxazole/Trimeth DS [Bactrim Ds] 2 each PO BID #28 tablet 10/14/18 [Rx] Allergies/Adverse Reactions: Allergy/AdvReac Type Severity Reaction Status Date / Time No Known Allergies Allergy Verified 04/03/18 08:46 Date of admission: 10/10/18 18:07 Primary care physician: Nanci Martinez CNP Consults: 10/11/18 09:58 Consult to Surgery [CONS] Routine Consulting Provider: Surgery [facility] - [facility] Reason for Consult: Abcess Call Completed: Yes - Constitutional Vitals: Temp Pulse Resp BP Pulse Ox 97.8 F 65 15 129/75 96 10/14/18 06:29 10/14/18 06:29 10/14/18 06:29 10/14/18 06:29 10/14/18 06:29 Exam: General: NAD, comfortable today Skin: Left gluteal cleft with no erythema or purulent drainage, does have ~1.5- 2cm diagonal incision L buttock from surgery Chest: Normal breath sounds. Clear to auscultation. Heart: Normal S1 & S2; RRR Abdomen: soft and non-tender Extremities: No edema. Normal distal pulses. Neurological: No focal deficits. Psych: Awake, fully oriented, normal affect - Patient Status Disposition: Home, Self-Care Condition: Good Functional capacity at discharge: independent ambulation Overall status at discharge: patient is progressing back to baseline - Discharge Instructions Follow Up With: Luisito Arauz MD [Non-Partnered Physician] - Nanci Martinez CNP [Primary Care Provider] - Additional Instructions: Patient should stop taking his Lisinopril while on Bactrim, and can resume taking Lisinopril when he finishes the Bactrim - Diet and Activity Activity: resume usual activities as tolerated Diet: advance to your usual diet
[2018-10-14] MEDS: Lisinopril 20 MG TABLET PO SCH (09:11)
[2018-10-14] MEDS: Celecoxib 200 MG CAPSULE PO SCH (09:12)
[2018-10-14] MEDS ORDERED: Aminoglycoside Consult 1 EACH MC ONE (11:42)
== END 2018-10-14 11:43 | disposition home or self-care (01) | DRG 854 ==
LOC: EMEROOARM 15:56 → 3ANU 15:56 → SUATTDRO 10-10 18:07
PROVIDERS: ADMIT Internal Medicine; ATTEND Internal Medicine